=== PATIENT | female | born 1955 | race Caucasian/White ===

== ENCOUNTER → 2017-02-27 | Outpatient (CLI) | payer OTHER ==
--- NOTE | 2017-03-07 13:02 | RADIOLOGY REPORT PS360 ---
. DIG MAMM-SCREEN [facility] W/CAD CAD Screening ORDERING PHYSICIAN : Sumeet Ramirez MD PATIENT AGE: 61 years GENDER: Female COMPARISON: Previous mammograms: June 2014 bilateral mammogram. Right mammogram July 2014. INDICATION: Routine screening no hormones. No new complaints. Family history. Mother with breast cancer in her 60s. Half sister in her 50s. TECHNIQUE: Standard CC and MLO images were obtained. R2 CAD reviewed. FINDINGS: Prior films are very helpful and supportive stable appearance of both breasts. Specifically there is some mild asymmetry toward the lateral right breast which is unchanged since 2015 and dissipates on the MLO view.. It can be followed. No significant new areas of concern. Moderately dense breast which slightly decreases to mammography: . No significant new areas of concern IMPRESSION: Stable bilateral mammogram with no significant new areas of concern. Stable mild asymmetry. Moderately dense breasts. Follow up one year recommended BI-RADS CATEGORY: 2_Benign RECOMMENDED FOLLOWUP: 12M 12 MONTH FOLLOW-UP (A letter has been sent to the patient regarding results of the study.)
== END ==
LOC: RAD 10:46
DX: Z12.31 Encounter for screening mammogram for malignant neoplasm of breast (principal)
CPT/HCPCS: G0202